=== PATIENT | female | born 1960 | race African-American/Black ===

== ENCOUNTER 2017-04-17 09:49 | Outpatient (CLI) | payer BC ==
--- NOTE | 2017-04-17 11:23 | RAD ---
LEFT KNEE FOUR VIEWS: History: 56-year-old female with left knee pain. FINDINGS: Mild degenerative changes. No acute fracture or dislocation. IMPRESSION: Unremarkable left knee. Mild degenerative changes without fracture. POS: [facility]
--- NOTE | 2017-04-17 11:24 | RAD ---
RIGHT KNEE FOUR VIEWS: History: 56-year-old female with right knee pain. Comparison: 04-24-16 IMPRESSION: Mild degenerative changes. No fracture, dislocation, or other significant acute osseous abnormality. POS: [facility]
--- NOTE | 2017-04-17 11:37 | RAD ---
BILATERAL HIPS TWO VIEWS: History: Pain. Comparison: None. FINDINGS: There is heterotopic ossification of the rectus femoris on the left. Mild narrowing of the pubic sym physis and SI joints. Phleboliths are present in the pelvis. No acute fracture is appreciated. IMPRESSION: 1. Heterotopic calcification along the expected location of the rectus femoris tendon on the left pineda ggests sequellae of prior avulsion or tear. 2. Mild narrowing of the pubic symphysis and visualized portion of the SI joint. 3. No acute fracture or malalignment. POS: [facility]
== END 2017-04-17 09:50 | disposition home or self-care (01) ==
LOC: RAD-FRANK 09:49
PROVIDERS: ATTEND Internal Medicine
DX: M25.561 Pain in right knee (principal); M25.562 Pain in left knee; M25.551 Pain in right hip; M25.552 Pain in left hip; M65.862 Other synovitis and tenosynovitis, left lower leg; M17.0 Bilateral primary osteoarthritis of knee
CPT/HCPCS: 73521

== ENCOUNTER 2018-09-20 20:05 | Emergency (ER) | payer SELFPAY ==
[2018-09-20] MEDS ORDERED: Ketorolac Tromethamine 30 MG/ML VIAL ONE (20:15)
[2018-09-20] MEDS ORDERED: Ondansetron PF 4 MG/2 ML Vial ONE ×2 (20:16→20:23)
[2018-09-20] MEDS ORDERED: Morphine 4 MG/ML VIAL ONE (20:27)
[2018-09-20 20:38] LABS: #Basophils 0.1 thou/uL (0.0-0.2); #Eosinphils 0.2 thou/uL (0.0-0.7); #Lymphocytes 2.6 thou/uL (1.20-3.40); #Monocytes 0.6 thou/uL (0.11-0.59); #Neutrophils 3.8 thou/uL (1.40-6.50); %Eosinophils 3.2 % (0.0-10.0); %Lymphocytes 35.6 % (21.0-51.0); %Monocytes 8.1 % (0.0-10.0); Hemoglobin 11.4 g/dL (12.0-16.0); Mean Corpuscular HGB CONC 32.9 g/dL (32.0-36.0); Mean Corpuscular Hemoglobin 30.4 pg (27.0-31.0); Mean Corpuscular Volume 92.7 fL (78.0-98.0); Platelet Count 286 thou/uL (130-400); RBC Distribution Width 11.7 % (11.5-14.5); Red Blood Cell (RBC) Count 3.74 mill/uL (4.20-5.40); White Blood Cell (WBC) Count 7.3 thou/uL (4.8-10.8)
[2018-09-20 20:45] LABS: BHCG - Serum Negative (NEGATIVE); Pregs Control Background? CLEAR/WHITE (CLR/WHITE); Pregs Control Bar Appear? YES (CONTROL BAR)
[2018-09-20 20:55] LABS: Bilirubin Negative (Negative); Blood, Urine Negative (Negative); Clarity CLEAR (Clear); Glucose, Urine (Dipstick) Negative (Negative); Leukocyte Trace (Negative); Nitrite Negative (Negative); Protein, Urine (Dipstick) Negative (Neg-Trace); Specific Gravity, Urine 1.015 (1.002-1.036); Urobilinogen 0.2 mg/dL (0.2-1.0)
[2018-09-20 20:56] LABS: Bacteria/HPF Rare-Few HPF (None Seen); Hyaline Casts/LPF 0-3 HYALINE CAST LPF (0-3 Hyaline)
[2018-09-20 20:58] LABS: ALT (SGPT) 9 U/L (8-55); AST (SGOT) 10 U/L (5-34); Albumin 3.6 g/dL (3.5-5.0); Alkaline Phosphatase 72 U/L (40-150); Anion Gap 12 mmol/L (10-20); BUN (Urea Nitrogen) 17 mg/dL (9.8-20.1); Bilirubin, Total 0.2 mg/dL (0.2-1.2); Calc. Creatinine Clearance 0 mL/min (70-130); Calcium 8.6 mg/dL (7.8-10.44); Carbon Dioxide 24 mmol/L (22-29); Chloride 111 mmol/L (98-107); Estimated GFR-MDRD Greater than 90; Globulin 2.7 g/dL (2.4-3.5); Glucose 106 mg/dL (70-105); Lipase 13 U/L (8-78); Potassium 3.5 mmol/L (3.5-5.1); Protein, Total 6.3 g/dL (6.0-8.3); Sodium 143 mmol/L (136-145)
--- NOTE | 2018-09-20 21:05 | CT ---
NONCONTRAST ENHANCED CT IMAGES ABDOMEN AND PELVIS: 09/20/18 HISTORY: Patient with abdominal pain. Left flank pain. Noncontrast enhanced CT images of the abdomen and pelvis is obtained. Coronal reconstructed images o btained. The lung bases are unremarkable. No evidence of free intraperitoneal air seen. The liver and spleen are unremarkable. The gallbladder has been surgically removed. The pancreas is u nremarkable. Adrenal glands unremarkable. No definite evidence of right or left renal calculi seen. The ureters are decompressed. No evidence of obstructing renal calculi seen. Some minimal mesenteric lymph node enlargement seen. IMPRESSION: No evidence of renal calculi. POS: [facility]
== END 2018-09-20 22:24 | disposition home or self-care (01) ==
LOC: ERS 20:05
DX: N39.0 Urinary tract infection, site not specified (principal); R11.2 Nausea with vomiting, unspecified; M19.90 Unspecified osteoarthritis, unspecified site
CPT/HCPCS: 36415; 74176; 80053; 81003; 81015; 83690; 84703; 85025; 87086; 96361; 96374; 96375; J1885; J2270; J2405

== ENCOUNTER 2018-10-08 09:33 | Emergency (ER) | payer SELFPAY ==
[2018-10-08 09:57] LABS: #Basophils 0.1 thou/uL (0.0-0.2); #Eosinphils 0.3 thou/uL (0.0-0.7); #Lymphocytes 2.3 thou/uL (1.20-3.40); #Monocytes 0.4 thou/uL (0.11-0.59); #Neutrophils 3.2 thou/uL (1.40-6.50); %Basophils 1.3 % (0.0-1.0); %Lymphocytes 36.3 % (21.0-51.0); %Monocytes 6.6 % (0.0-10.0); %Neutrophils 50.8 % (42.0-75.0); Hemoglobin 12.6 g/dL (12.0-16.0); Mean Corpuscular HGB CONC 32.4 g/dL (32.0-36.0); Mean Corpuscular Volume 92.8 fL (78.0-98.0); Mean Platelet Volume 8.1 fL (7.4-10.4); Platelet Count 306 thou/uL (130-400); RBC Distribution Width 11.8 % (11.5-14.5); Red Blood Cell (RBC) Count 4.21 mill/uL (4.20-5.40); White Blood Cell (WBC) Count 6.3 thou/uL (4.8-10.8)
[2018-10-08 10:02] LABS: Bilirubin Negative (Negative); Blood, Urine Negative (Negative); Clarity CLOUDY (Clear); Glucose, Urine (Dipstick) Negative (Negative); Leukocyte Negative (Negative); Nitrite Negative (Negative); Protein, Urine (Dipstick) Negative (Neg-Trace); Specific Gravity, Urine 1.017 (1.002-1.036); Urobilinogen 0.2 mg/dL (0.2-1.0)
[2018-10-08 10:22] LABS: ALT (SGPT) 10 U/L (8-55); AST (SGOT) 10 U/L (5-34); Albumin 4.2 g/dL (3.5-5.0); Alkaline Phosphatase 70 U/L (40-150); Anion Gap 11 mmol/L (10-20); BUN (Urea Nitrogen) 17 mg/dL (9.8-20.1); Bilirubin, Total 0.4 mg/dL (0.2-1.2); Calc. Creatinine Clearance 0 mL/min (70-130); Calcium 9.7 mg/dL (7.8-10.44); Carbon Dioxide 28 mmol/L (22-29); Chloride 105 mmol/L (98-107); Estimated GFR-MDRD 90; Globulin 2.9 g/dL (2.4-3.5); Glucose 95 mg/dL (70-105); Lipase 15 U/L (8-78); Potassium 3.9 mmol/L (3.5-5.1); Protein, Total 7.1 g/dL (6.0-8.3); Sodium 140 mmol/L (136-145)
== END 2018-10-08 12:29 | disposition home or self-care (01) ==
LOC: ERS 09:33
DX: R10.32 Left lower quadrant pain (principal); M19.90 Unspecified osteoarthritis, unspecified site
CPT/HCPCS: 36415; 80053; 81003; 83690; 85025; 99284

== ENCOUNTER 2018-12-13 08:30 | Outpatient (CLI) | payer BC ==
--- NOTE | 2018-12-13 10:30 | ULT ---
RIGHT BREAST ULTRASOUND AND LEFT BREAST ULTRASOUND: HISTORY: Mass is noted on diagnostic and screening mammography. COMPARISON: None. CORRELATION: Previous mammogram 06/20/2018. TECHNIQUE: Targeted sonographic imaging of the right breast is performed at the 10 o'clock position and in the l eft breast at the 8 o'clock position. Static images are reviewed. After reviewing static images, re al-time imaging is performed in the presence of the radiologist. FINDINGS: RIGHT BREAST: There is a well-circumscribed anechoic focus measuring 0.5 x 0.4 x 0.3 cm, compatible with a cyst. LEFT BREAST: There is well-circumscribed anechoic focus measuring 0.4 x 0.3 x 0.4 cm, compatible with a cyst. The se lesions are felt to correspond to the mammographic findings. IMPRESSION: BIRADS category 2, benign findings. RECOMMENDATION: Annual mammogram. POS: [facility]
== END 2018-12-13 08:31 | disposition home or self-care (01) ==
LOC: BICULT 08:30
PROVIDERS: ATTEND Internal Medicine
DX: N63.11 Unspecified lump in the right breast, upper outer quadrant (principal); N63.24 Unspecified lump in the left breast, lower inner quadrant

== ENCOUNTER 2020-01-08 10:13 | Outpatient (CLI) | payer BC ==
--- NOTE | 2020-01-08 11:03 | MMO ---
Bilateral MAMMO Bilat Screen [facility]. CLINICAL HISTORY: Patient is 59 years old and is seen for screening. The patient has the following family history of breast cancer: 2 maternal aunts, malignant (generic) and cousin female, malignant (generic), MATERNAL. The patient has no personal history of cancer. The patient has a history of left Excisional Biopsy in ? - benign. VIEWS: The views performed were: bilateral craniocaudal with tomosynthesis and bilateral mediolateral oblique with tomosynthesis. FILMS COMPARED: The present examination has been compared to prior imaging studies performed at [facility] on 04/01/2014 and 12/13/2018. This study has been interpreted with the assistance of computer-aided detection. MAMMOGRAM FINDINGS: There are scattered fibroglandular densities. There are stable calcifications seen in both breasts. There are no suspicious masses, suspicious calcifications, or new areas of architectural distortion. IMPRESSION: THERE IS NO MAMMOGRAPHIC EVIDENCE OF MALIGNANCY. A ROUTINE FOLLOW-UP MAMMOGRAM IN 1 YEAR IS RECOMMENDED. THE RESULTS OF THIS EXAM WERE SENT TO THE PATIENT. ACR BI-RADS Category 2 - Benign finding MAMMOGRAPHY NOTE: 1. A negative mammogram report should not delay a biopsy if a dominant of clinically suspicious mass is present. 2. Approximately 10% to 15% of breast cancers are not detected by mammography. 3. Adenosis and dense breasts may obscure an underlying neoplasm. Reported by: RHIANNA STEPHENSON MD Electonically Signed: [id number]
== END 2020-01-08 10:14 | disposition home or self-care (01) ==
LOC: BICMAMMO 10:13
PROVIDERS: ATTEND Nurse Practitioner Family
DX: Z12.31 Encounter for screening mammogram for malignant neoplasm of breast (principal); Z80.3 Family history of malignant neoplasm of breast; Z91.89 Other specified personal risk factors, not elsewhere classified
CPT/HCPCS: 77063; 77067

== ENCOUNTER 2021-09-15 09:44 | Outpatient (CLI) | payer MEDICAID | END 2021-09-15 09:45 | disposition home or self-care (01) | LOC: BICMAMMO 09:44 | PROVIDERS: ATTEND Nurse Practitioner Family | DX: Z12.31 Encounter for screening mammogram for malignant neoplasm of breast (principal); Z80.3 Family history of malignant neoplasm of breast | CPT/HCPCS: 77067 ==

== ENCOUNTER 2021-11-09 09:37 | Outpatient (CLI) | payer MEDICARE | END 2021-11-09 09:38 | disposition home or self-care (01) | LOC: BICMRI 09:37 | PROVIDERS: ATTEND Specialist | DX: M51.16 Intervertebral disc disorders with radiculopathy, lumbar region (principal); M43.16 Spondylolisthesis, lumbar region; M47.26 Other spondylosis with radiculopathy, lumbar region | CPT/HCPCS: 72110; 72148 ==

== ENCOUNTER 2022-03-01 09:54 | Outpatient (CLI) | payer OTHER | END 2022-03-01 09:55 | disposition home or self-care (01) | LOC: BICMAMMO 09:54 | PROVIDERS: ATTEND Student in an Organized Health Care Education/Training Program | DX: N64.4 Mastodynia (principal) | CPT/HCPCS: 76642; 77065; G0279 ==